=== PATIENT | male | born 1970 | race Caucasian/White ===

== ENCOUNTER → 2019-04-08 | Outpatient (CLI) | payer OTHER ==
--- NOTE | 2019-04-08 14:16 | REP ---
MAXILLOFACIAL CT STUDY WITHOUT CONTRAST: HISTORY: Maxillary sinusitis. COMPARISON STUDY: January 24, 2011. CT FINDINGS: There is an 18 mm mucous retention cyst in the right maxillary sinus again noted. There is a smaller, 6 mm mucous retention cyst along the medial wall of the left maxillary sinus. These are unchanged. Sphenoid, ethmoid, and frontal sinuses remain clear. Mastoid aeration is normal and symmetric. Bony nasal septum is essentially midline. Nasal turbinate soft tissues are symmetric and unremarkable. The ostiomeatal complexes are patent. The small left-sided maxillary sinus mucosal retention cyst is near the area of the ostium on the left. There is a Kelvin cell on the left as well. Bony sinus margins are intact. Bony orbital margins are intact. The orbital soft tissues and the intracranial soft tissues are unremarkable as visualized. IMPRESSION: Mucous retention cysts in the maxillary sinuses bilaterally. Left-sided Kelvin cell noted. Otherwise unremarkable. Electronically Signed by Christian Ann MD 04/08/2019 02:22 P
== END ==
LOC: M RAD 13:01
PROVIDERS: ATTEND Specialist
DX: J32.0 Chronic maxillary sinusitis (principal)

== ENCOUNTER → 2022-07-17 | Outpatient (CLI) | payer OTHER | LOC: M RAD 08:05 | PROVIDERS: ATTEND Physician Assistant | DX: J32.8 Other chronic sinusitis (principal); J34.1 Cyst and mucocele of nose and nasal sinus ==

== ENCOUNTER → 2023-03-14 | Outpatient (CLI) | payer OTHER | LOC: M PLAIMG 08:25 | PROVIDERS: ATTEND Otolaryngology | DX: J32.8 Other chronic sinusitis (principal) ==

== ENCOUNTER 2023-08-13 10:42 | Day surgery (SDC) | payer OTHER ==
[~2023-08-13] VITALS: Ht 188 cm; Wt 105.7 kg
[2023-08-13] MEDS ORDERED: LR 1,000 ML IV SCH ×2 (11:00→14:50)
[2023-08-13] MEDS ORDERED: LIDOCAINE W/EPINEPHRINE 1% 20ML VIAL As Ordered ONE (11:24)
[2023-08-13] MEDS ORDERED: OXYMETAZOLINE 0.05% NASAL SPRAY (AFRIN) As Ordered ONE (11:24)
[2023-08-13] MEDS ORDERED: COCAINE 4% 4ML NASAL SOLUTION BTL As Ordered ONE (11:25)
[2023-08-13] MEDS ORDERED: dexmedeTOMIDine (4MCG/ML)200MCG/50ML BTL (PRECEDEX) As Ordered ONE (12:07)
[2023-08-13] MEDS ORDERED: ACETAMINOPHEN 1000MG 100ML IV BAG As Ordered ONE (12:07)
[2023-08-13] MEDS ORDERED: ONDANSETRON 4MG 2ML VIAL As Ordered ONE (12:07)
[2023-08-13] MEDS ORDERED: LIDOCAINE 2% 100MG/5ML SDV (FOR ANES.) As Ordered ONE (12:07)
[2023-08-13] MEDS ORDERED: SUGAMMADEX SODIUM 500 MG/5 ML VIAL (BRIDION) As Ordered ONE (12:07)
[2023-08-13] MEDS ORDERED: fentaNYL 250 MCG/5 ML INJECTION As Ordered ONE (12:07)
[2023-08-13] MEDS ORDERED: propofoL 200 MG/20 ML VIAL As Ordered ONE ×2 (12:07→12:57)
[2023-08-13] MEDS ORDERED: ROCURONIUM BROMIDE 50MG/5ML VIAL As Ordered ONE (12:07)
[2023-08-13] MEDS ORDERED: MIDAZOLAM INJ 2MG/2ML VIAL As Ordered ONE (12:07)
[2023-08-13] MEDS ORDERED: LABETALOL 100MG/20ML VIAL As Ordered ONE (12:21)
[2023-08-13] MEDS ORDERED: fentaNYL 100 MCG/2 ML INJECTION IV PRN (13:25)
[2023-08-13] MEDS ORDERED: oxyCODONE 5MG TAB PO PRN (13:25)
[2023-08-13] MEDS ORDERED: ONDANSETRON 4MG 2ML VIAL IV PRN ×2 (13:25→14:50)
[2023-08-13 14:40] VITALS: BP 138/88; TEMP 97.8; O2SAT 95
== END 2023-08-13 15:20 | disposition home or self-care (01) ==
LOC: M SDC 10:42
PROVIDERS: ATTEND Otolaryngology
DX: J32.8 Other chronic sinusitis (principal); R73.03 Prediabetes
CPT/HCPCS: 31254; 31267; 31276; 61782; 88305; 93005; A6024; C9143; J0131; J1100; J1920; J2250; J2405; J3010